=== PATIENT | female | born 1975 ===

== ENCOUNTER 2021-05-30 10:19 | Emergency (ER) | payer OTHER ==
[~2021-05-30] VITALS: Ht 157.5 cm; Wt 74.8 kg
[~2021-05-30 10:19] MED LIST: ENALAPRIL MALE2.5 MG PO; SYNTHROID50 MCG PO
[2021-05-30] MEDS ORDERED: SYNTHROID100 MCG PO (10:36)
[2021-05-30] MEDS ORDERED: VASOTEC10 MG (10:36)
[2021-05-30] MEDS ORDERED: GLIMEPIRIDE4 M1 PO (10:37)
[2021-05-30] MEDS ORDERED: AMOX-CLAV 875-1 EACH PO (12:51)
== END 2021-05-30 12:54 | disposition home or self-care (01) ==
LOC: ER 10:19
DX: J06.9 Acute upper respiratory infection, unspecified (principal); Z03.818 Encounter for observation for suspected exposure to other biological agents ruled out

== ENCOUNTER 2021-06-01 15:02 | Emergency (ER) | payer OTHER ==
[~2021-06-01] VITALS: Ht 157.5 cm; Wt 69.4 kg
[~2021-06-01 15:02] MED LIST changes: +AMOX-CLAV 875-1 EACH PO; +GLIMEPIRIDE4 M1 PO; +SYNTHROID100 MCG PO; +VASOTEC10 MG
[2021-06-01] MEDS ORDERED: FLONASE16 GM NASAL (18:52)
[2021-06-01] MEDS ORDERED: LEVALBUTER1.25 MG/3 IH (18:52)
[2021-06-01] MEDS ORDERED: MUCINEX DM ER1 EAC1 PO (18:52)
[2021-06-01] MEDS ORDERED: ACETAMINOPHEN650 M2 PO (18:52)
== END 2021-06-01 20:49 | disposition home or self-care (01) ==
LOC: ER 15:02
DX: J01.90 Acute sinusitis, unspecified (principal); J06.9 Acute upper respiratory infection, unspecified; R51.9 Headache, unspecified; Z03.818 Encounter for observation for suspected exposure to other biological agents ruled out